=== PATIENT | male | born 1950 | race Caucasian/White ===

== ENCOUNTER 2020-09-10 14:07 | Inpatient (IN) | payer OTHER ==
[~2020-09-10] VITALS: Ht 180.3 cm; Wt 86.7 kg
--- NOTE | 2020-09-10 14:36 | PHYS DOC ---
Past History Past Medical History: Anemia, Diabetes, Hypertension Past Surgical History: No Surgical History Additional Past Surgical Histo: colonoscopy. Alcohol Use: None Drug Use: None General Adult EDM: Chief Complaint: CHEST PAIN HPI: HPI: 70-year-old male presents with chest pain. The patient tells me that he had upper abdominal lower chest pain yesterday but it went away. He has pain again there today. He does not really describe it well. Patient appears to have some level of diminished capacity. He may have had an episode of vomiting this morning. He denies diarrhea. He denies shortness of breath or diaphoresis. Patient has no history of cardiac problems. He has not had a stress test or cardiac cath. Family who accompanies him provides some of this history. He denies fever or chills. He has no other complaints this time. The patient takes medication for blood pressure and a baby aspirin daily. Review of Systems: Review of Systems: Constitutional: Denies fever or chills Eyes: Denies change in visual acuity HENT: Denies nasal congestion or sore throat Respiratory: Denies cough or shortness of breath Cardiovascular: Chest pain GI: Epigastric abdominal pain, nausea, vomiting. Denies bloody stools or diarrhea : Denies dysuria Musculoskeletal: Denies back pain or joint pain Integument: Denies rash Neurologic: Denies headache, focal weakness or sensory changes Endocrine: Denies polyuria or polydipsia Lymphatic: Denies swollen glands Psychiatric: Denies depression or anxiety Allergies: Allergies: Allergies Coded Allergies Type Severity Reaction Last Updated Verified No Known Drug Allergies 06/02/14 No Physical Exam: PE: Constitutional: Well developed, well nourished, no acute distress, non-toxic appearance. [] HENT: Normocephalic, atraumatic, bilateral external ears normal, oropharynx moist, no oral exudates, nose normal. [] Eyes: PERRLA, EOMI, conjunctiva normal, no discharge. [] Neck: Normal range of motion, no tenderness, supple, no stridor. [] Cardiovascular: Heart rate regular rhythm, 4/6 systolic ejection murmur [] Lungs & Thorax: Bilateral breath sounds clear to auscultation [] Abdomen: Bowel sounds normal, soft, epigastric tenderness, no masses, no pulsatile masses. [] Skin: Warm, dry, no erythema, no rash. [] Back: No tenderness, no CVA tenderness. [] Extremities: No tenderness, no cyanosis, no clubbing, ROM intact, no edema. [] Neurologic: Alert and oriented X 3, normal motor function, normal sensory function, no focal deficits noted. [] Psychologic: Affect normal, judgement normal, mood normal. [] Current Patient Data: Vital Signs: Vital Signs Date Time Temp Pulse Resp B/P (MAP) Pulse Ox O2 Delivery O2 Flow Rate FiO2 09/10/20 14:15 100.0 117 28 174/90 (118) 96 Room Air EKG: EKG: [] Radiology/Procedures: Radiology/Procedures: [] Impressions: AP portable chest radiograph 09/10/2020 Clinical History: Chest pain. An AP erect portable digital radiograph of the chest was obtained. The cardiac silhouette is mildly enlarged. The thoracic aorta is mildly tortuous. Atherosclerotic calcification of the thoracic aorta is seen. No acute pulmonary infiltrate is noted. No pneumothorax or pleural effusion is seen. Degenerative changes are seen involving the thoracic spine and both shoulders. IMPRESSION: No acute abnormality is seen. Electronically signed by: Narayan Hartman MD (09/10/2020 3:24 PM) [id number] DICTATED AND SIGNED BY: NARAYNA HARTMAN MD DATE: 09/10/20 1523 CC: MERRY DOHERTY DO; PANCHITO ELLINGTON ~MTH0 0 Study: CT abdomen/pelvis with intravenous contrast Indication: Pancreatitis. Comparison: None. Technique: Helical CT imaging performed of the abdomen and pelvis after the intr avenous administration of 75 cc Omnipaque 300 contrast. Sagittal and coronal reformats were obtained. One or more of the following individualized dose reduction techniques were utilized for this examination: 1. Automated exposure control 2. Adjustment of the mA and/or kV according to patient size 3. Use of iterative reconstruction technique. Findings: Fatty infiltration of the pancreas. Edematous uncinate process and surrounding mesentery. No pancreatic or peripancreatic fluid collection. No soft tissue gas with a small focus of gas along the third segment of the duodenum, image 32 series 2, favored intraluminal.. Trace free pelvic fluid. Patent portal veins and central superior mesenteric vein. Patent splenic vein. No pseudoaneurysm. No focal hepatic parenchymal abnormality. Two calcified gallstones. No manifestations of acute cholecystitis. Nondilated biliary tree. No stone is seen within the common duct. The spleen is within normal limits for size. No adrenal gland mass. Cystic prominence of the left renal pelvis favored in part from peripelvic cysts. Caliectasis is possible but the pelvis is not dilated nor is the ureter. Similar but more mild cystic change at the inferior pole of the right renal pelvis. Nonspecific perinephric fat stranding. No stone is seen within either ureter or within the urinary bladder. Bladder wall thickness is within normal limits. There appear to be two small bladder diverticuli anteriorly, image 74 series 2. The prostate is within normal limits for size. Mild volume colonic stool burden. The appendix is not well delineated and may be surgically absent. Nonobstructed small bowel. Possible mild reactive ileus. Unremarkable stomach. Minimal scattered calcific atherosclerosis. Nonaneurysmal aorta. A few reactive mesenteric lymph nodes. Mildly prominent but not pathologically enlarged inguinal lymph nodes the largest on the left measuring up to 1 cm short axis. No complex body wall hernia. No acute abnormality of the body wall soft tissues. Lower lumbar spondylosis greatest at L4/L5. No acute osseous abnormality or findings of avascular necrosis. Impression: 1. Acute pancreatitis centered at the uncinate process with inflammatory changes extending downward along the mesentery. Reactive wall thickening of the adjacent duodenum and there may be a mild reactive ileus. No fluid collection or soft tissue gas. No vascular complication. 2. Intrapelvic cystic change on the left could be in part from peripelvic cysts. A component of caliectasis is possible but there is no hydroureter or stone to suggest active obstruction. 3. Two calcified gallstones. No findings of acute cholecystitis. No stone is seen within the common duct to indicate gallstone pancreatitis. Electronically signed by: RAISA LEON MD (09/10/2020 4:52 PM) [id number] DICTATED AND SIGNED BY: RAISA LEON MD DATE: 09/10/20 1643 CC: MERRY DOHERTY DO; PANCHITO ELLINGTON ~MTH0 0 Heart Score: C/O Chest Pain: Yes HEART Score for Chest Pain: HEART Score for Chest Pain Response (Comments) Value History Slighlty/Non-Suspicious 0 ECG Nonspecific Repolarizatio 1 Age > 65 2 Risk Factors 1 or 2 Risk Factors 1 Total 4 Risk Factors: Risk Factors: DM, Current or recent (<one month) smoker, HTN, HLP, family history of CAD, obesity. Risk Scores: Score 0 - 3: 2.5% MACE over next 6 weeks - Discharge Home Score 4 - 6: 20.3% MACE over next 6 weeks - Admit for Clinical Observation Score 7 - 10: 72.7% MACE over next 6 weeks - Early Invasive Strategies Course & Med Decision Making: Course & Med Decision Making Pertinent Labs and Imaging studies reviewed. (See chart for details) EKG is unremarkable for acute findings. Troponin is negative. Chest x-ray is negative for acute findings. The patient's labs are significant for an elevated lipase and elevated BNP. I have no previous for comparison. The lipase is most concerning and it makes sense with his symptoms. The patient does not drink alcohol at all. He has no history of pancreatitis. I have ordered a CT scan. The CT confirms pancreatitis. He has gallstones, but there does not appear to be an obstructive one at this time. His liver enzymes are normal. His alk phos is normal. We will give the patient 4 mg of morphine for his discomfort. I spoke with Dr. Panda, the hospitalist and he has accepted the patient for admission. The patient and his family are in agreement with this pl an. [] Elianeon Disclaimer: Griffin Disclaimer: This electronic medical record was generated, in whole or in part, using a voice recognition dictation system. Departure Departure: Impression: Primary Impression: Pancreatitis Qualified Codes: K85.90 - Acute pancreatitis without necrosis or infection, unspecified Disposition: ADMITTED INPATIENT Admitting Physician: Bruno Panda Condition: STABLE Referrals: PANCHITO ELLINGTON (PCP) MERRY DOHERTY DO September 10, 2020 14:36
[2020-09-10] MEDS ORDERED: ASPIRIN CHEWABLE 81 MG TABLET. PO ONE (14:45)
[2020-09-10 14:53] LABS: BASO # 0.1 x10^3/uL (0.0-0.2); BASO % 0 % (0-3); EOS % 0 % (0-3); HEMATOCRIT 35.9 % (39.0-53.0); HEMOGLOBIN 11.5 g/dL (13.0-17.5); LYMPH # 0.6 x10^3/uL (1.0-4.8); LYMPH % 5 % (24-48); MEAN CORPUSCULAR HEMOGLOBIN 27 pg (25-35); MEAN CORPUSCULAR HGB CONC 32 g/dL (31-37); MEAN CORPUSCULAR VOLUME 85 fL (79-100); MONO # 0.9 x10^3/uL (0.0-1.1); MONO % 8 % (0-9); NEUT # 10.5 x10^3uL (1.8-7.7); NEUT % 87 % (31-73); PLATELET COUNT 162 x10^3/uL (140-400); RED BLOOD COUNT 4.23 x10^6/uL (4.30-5.70); RED CELL DISTRIBUTION WIDTH 16.7 % (11.5-14.5); WHITE BLOOD COUNT 12.1 x10^3/uL (4.0-11.0)
[2020-09-10] MEDS ORDERED: IV NORMAL SALINE 1,000ML 1,000 ML IV ONE (15:00)
[2020-09-10 15:06] LABS: CALCIUM 8.9 mg/dL (8.5-10.1); CREATININE 0.9 mg/dL (0.7-1.3); GFR 83.9; POTASSIUM 3.6 mmol/L (3.5-5.1)
[2020-09-10] MEDS ORDERED: FAMOTIDINE 20 MG/2 ML VIAL IVP ONE (15:15)
[2020-09-10] MEDS ORDERED: LIDO:MAALOX 1:1 20 ML SINGLE DOSE. PO ONE (15:15)
[2020-09-10 15:18] LABS: ALBUMIN 3.2 g/dL (3.4-5.0); ALBUMIN/GLOBULIN RATIO 0.7 (1.0-1.7); TOTAL BILIRUBIN 0.7 mg/dL (0.2-1.0); TOTAL PROTEIN 7.5 g/dL (6.4-8.2)
--- NOTE | 2020-09-10 15:26 | RAD ---
AP portable chest radiograph 09/10/2020 Clinical History: Chest pain. An AP erect portable digital radiograph of the chest was obtained. The cardiac silhouette is mildly enlarged. The thoracic aorta is mildly tortuous. Atherosclerotic pretty cification of the thoracic aorta is seen. No acute pulmonary infiltrate is noted. No pneumothorax or pleural effusion is seen. Degenerative changes are seen involving the thoracic spine and both shoulde rs. IMPRESSION: No acute abnormality is seen. Electronically signed by: Narayan Hartman MD (09/10/2020 3:24 PM) [id number]
--- NOTE | 2020-09-10 15:39 | EKG ---
[address] [address] Test Date: 2020-09-10 Test Time: 14:14:34 Pat Name: PRO GALLOWAY Department: Room: Gender: M Jewelry Bench Worker: CAROLEE : 1950 Requested By: MERRY DOHERTY Order Number: [id number] Reading MD: Leif Wise Measurements Intervals Marshall Rate: 117 P: -5 WA: 182 QRS: 7 QRSD: 72 T: 69 QT: 282 QTc: 397 Interpretive Statements SINUS TACHYCARDIA ST & T ABNORMALITY, CONSIDER HIGH LATERAL ISCHEMIA OR LEFT VENTRICULAR STRAIN Electronically Signed On 09-13-2020 15:29:50 CDT by Leif Wise
[2020-09-10] MEDS ORDERED: IOHEXOL 300 MG/ML 75 ML VIAL. IV ONE (16:00)
[2020-09-10] MEDS ORDERED: CONTRAST GIVEN. MC PRN (16:00)
--- NOTE | 2020-09-10 16:54 | RAD ---
Study: CT abdomen/pelvis with intravenous contrast Indication: Pancreatitis. Comparison: None. Technique: Helical CT imaging performed of the abdomen and pelvis after the intravenous administratio n of 75 cc Omnipaque 300 contrast. Sagittal and coronal reformats were obtained. One or more of the following individualized dose reduction techniques were utilized for this examinat ion: 1. Automated exposure control 2. Adjustment of the mA and/or kV according to patient size 3. Use of iterative reconstruction technique. Findings: Fatty infiltration of the pancreas. Edematous uncinate process and surrounding mesentery. No pancreat ic or peripancreatic fluid collection. No soft tissue gas with a small focus of gas along the third s egment of the duodenum, image 32 series 2, favored intraluminal.. Trace free pelvic fluid. Patent por dustin veins and central superior mesenteric vein. Patent splenic vein. No pseudoaneurysm. No focal hepatic parenchymal abnormality. Two calcified gallstones. No manifestations of acute cholec ystitis. Nondilated biliary tree. No stone is seen within the common duct. The spleen is within rubina l limits for size. No adrenal gland mass. Cystic prominence of the left renal pelvis favored in part from peripelvic cysts. Caliectasis is poss ible but the pelvis is not dilated nor is the ureter. Similar but more mild cystic change at the infe rior pole of the right renal pelvis. Nonspecific perinephric fat stranding. No stone is seen within e ither ureter or within the urinary bladder. Bladder wall thickness is within normal limits. There nirali ear to be two small bladder diverticuli anteriorly, image 74 series 2. The prostate is within normal limits for size. Mild volume colonic stool burden. The appendix is not well delineated and may be surgically absent. N onobstructed small bowel. Possible mild reactive ileus. Unremarkable stomach. Minimal scattered calcific atherosclerosis. Nonaneurysmal aorta. A few reactive mesenteric lymph node s. Mildly prominent but not pathologically enlarged inguinal lymph nodes the largest on the left chris uring up to 1 cm short axis. No complex body wall hernia. No acute abnormality of the body wall soft tissues. Lower lumbar spondyl osis greatest at L4/L5. No acute osseous abnormality or findings of avascular necrosis. Impression: 1. Acute pancreatitis centered at the uncinate process with inflammatory changes extending downward along the mesentery. Reactive wall thickening of the adjacent duodenum and there may be a mild reacti ve ileus. No fluid collection or soft tissue gas. No vascular complication. 2. Intrapelvic cystic change on the left could be in part from peripelvic cysts. A component of john ectasis is possible but there is no hydroureter or stone to suggest active obstruction. 3. Two calcified gallstones. No findings of acute cholecystitis. No stone is seen within the common duct to indicate gallstone pancreatitis. Electronically signed by: RAISA LEON MD (09/10/2020 4:52 PM) [id number]
[2020-09-10] MEDS ORDERED: MORPHINE SULFATE 4 MG/ML DISP.SYRIN. IV ONE (17:15)
[2020-09-10] MEDS ORDERED: IV DEXTROSE 5%-LACT RINGERS 1,000 ML IV ONE (17:15)
[2020-09-10] MEDS ORDERED: ONDANSETRON PF 4 MG/2 ML VIAL. IVP PRN (17:15)
--- NOTE | 2020-09-10 20:10 | NUR ---
The patient, PRO GALLOWAY, 70 y/o, M admitted by DANDRE OLVERA MD, was given written information regarding hospital policies, unit procedures and contact persons. Valuables were checked and logged. Call light in place.
[2020-09-10 20:11] VITALS: BP 176/87
[2020-09-10] MEDS ORDERED: METF500T16 PO (20:41)
[2020-09-10] MEDS ORDERED: CHOL500051 PO (20:41)
[2020-09-10] MEDS ORDERED: FOLI0.8C2 PO (20:41)
[2020-09-10] MEDS ORDERED: LISI20TA18 PO (20:41)
[2020-09-10] MEDS ORDERED: ATOR10TA60 PO (20:41)
[2020-09-10] MEDS ORDERED: AMLO-187 PO (20:41)
[2020-09-10] MEDS ORDERED: FERR-26 PO (20:41)
[2020-09-10] MEDS ORDERED: ASPI-630 PO (20:42)
[2020-09-10] MEDS: ATORVASTATIN CALCIUM 10 MG TABLET. PO SCH (21:31)
[2020-09-10 22:24] VITALS: BP 171/81
[2020-09-11] MEDS: MORPHINE SULFATE 4 MG/ML DISP.SYRIN. IVP PRN ×2 (00:20→13:50)
[2020-09-11] MEDS ORDERED: IV NORMAL SALINE 1,000ML 1,000 ML IV SCH (02:00)
[2020-09-11 05:48] VITALS: BP 167/83
[2020-09-11 07:37] LABS: ALBUMIN 2.6 g/dL (3.4-5.0); ALBUMIN/GLOBULIN RATIO 0.6 (1.0-1.7); CALCIUM 8.5 mg/dL (8.5-10.1); CREATININE 0.9 mg/dL (0.7-1.3); GFR 83.9; POTASSIUM 3.6 mmol/L (3.5-5.1); TOTAL BILIRUBIN 0.7 mg/dL (0.2-1.0); TOTAL PROTEIN 7.2 g/dL (6.4-8.2)
[2020-09-11] MEDS: FOLIC ACID 1 MG TABLET PO SCH (09:11)
[2020-09-11] MEDS: CHOLECALCIFEROL (VITAMIN D3) 1,000 UNIT TABLET PO SCH (09:11)
[2020-09-11] MEDS: amLODIPine BESYLATE 10 MG TABLET PO SCH (09:11)
[2020-09-11] MEDS: LISINOPRIL 20 MG TABLET PO SCH (09:12)
[2020-09-11] MEDS: ASPIRIN CHEWABLE 81 MG TABLET. PO SCH (09:12)
[2020-09-11] MEDS: FERROUS SULFATE 325 MG TABLET. PO SCH (09:12)
--- NOTE | 2020-09-11 10:15 | HP ---
ADMIT DATE: 09/10/2020 ATTENDING PHYSICIAN: Dr. Panda. CHIEF COMPLAINT: Abdominal pain and back pain. HISTORY OF PRESENT ILLNESS: The patient is a 70-year-old gentleman who is developmentally delayed. He lives with his brother. His parents have . He has never . He has no children. He had extensive workup in the ED for the pain, he was found to have inflammation of the pancreas, the uncinate process. A few gallstones are in place without any dilatation. I suspect he had a small gallstone causing obstructive pancreatitis, which has since passed. His lipase was only 800. His abdominal exam was fairly unremarkable. He was admitted for further treatment and evaluation. He was kept n.p.o., given pain meds. PAST MEDICAL HISTORY: Significant for essential hypertension, adult onset diabetes and anemia of chronic disease. CURRENT MEDICATIONS: Reviewed. He was taking amlodipine, aspirin, Lipitor, ferrous sulfate, lisinopril and metformin. ALLERGIES: He has no known drug allergies. SOCIAL HISTORY: Nonsmoker, nondrinker. FAMILY HISTORY: Never . Parents have . He lives with his brother. REVIEW OF SYSTEMS: Significant for his developmental delay. He has abdominal pain, chronic back pain. Very hard time understanding what is going on. He was asking for panacea to cure everything. OBJECTIVE FINDINGS: VITAL SIGNS: In the ED, showed a blood pressure of 171/80, pulse is regular at 90 per minute, temperature 99.0 degrees Fahrenheit, oxygen saturation 96% on room air. HEENT: Head is without trauma. Pupils are reactive. Sclerae nonicteric. Oropharynx clear. NECK: Supple, no bruits. LUNGS: Clear. CARDIOVASCULAR: Showed regular heart tones. No gallops. ABDOMEN: Obese, protuberant. No organomegaly. Bowel sounds were hypoactive. EXTREMITIES: Show no signs or edema. NEUROLOGIC: Focally intact. Speech is fluent. LABORATORY DATA: Chemistry panel unremarkable. Lipase is 803. Electrolytes within range. Hemoglobin 11.5, white count 12,100. ASSESSMENT: 1. A 70-year-old gentleman with gallstone, pancreatitis, the stone has passed. 2. Symptoms are mild. 3. Epigastric and back pain. 4. Developmental delay. 5. Essential hypertension. 6. Anemia of chronic disease. 7. Type 2 diabetes. PLAN: 1. Admit to the inpatient unit. 2. N.p.o. 3. Pain and nausea control. 4. Gentle IV hydration. 5. Serial chemistries. DAJA/YANNICK DR: Drake TID: [id number] CC: GRZEGORZ BIGGS
[2020-09-11 11:39] VITALS: BP 189/83
[2020-09-11 11:48] VITALS: BP 149/76
[2020-09-11 15:50] VITALS: BP 138/74
--- NOTE | 2020-09-11 18:29 | NUR ---
Nursing note Pt is tolerating meals well and does not report pain with dinner
[2020-09-11 19:12] VITALS: BP 148/75
[2020-09-11] MEDS: ATORVASTATIN CALCIUM 10 MG TABLET. PO SCH (20:51)
[2020-09-11 22:46] VITALS: BP 129/75
[2020-09-12 05:19] VITALS: BP 146/76
[2020-09-12 07:30] LABS: CALCIUM 8.7 mg/dL (8.5-10.1); CREATININE 0.9 mg/dL (0.7-1.3); GFR 83.9; POTASSIUM 3.5 mmol/L (3.5-5.1)
[2020-09-12] MEDS: ASPIRIN CHEWABLE 81 MG TABLET. PO SCH (08:04)
[2020-09-12] MEDS: CHOLECALCIFEROL (VITAMIN D3) 1,000 UNIT TABLET PO SCH (08:04)
[2020-09-12] MEDS: FERROUS SULFATE 325 MG TABLET. PO SCH (08:04)
[2020-09-12] MEDS: LISINOPRIL 20 MG TABLET PO SCH (08:04)
[2020-09-12 08:05] VITALS: BP 146/76
[2020-09-12] MEDS: amLODIPine BESYLATE 10 MG TABLET PO SCH (08:05)
[2020-09-12] MEDS: FOLIC ACID 1 MG TABLET PO SCH (08:05)
--- NOTE | 2020-09-12 09:03 | NUR ---
pt states that pain in upper abdomen is resolved today but c/o gas pain in lower abdomen. denies any other concerns.
--- NOTE | 2020-09-12 09:32 | DS ---
DATE OF DISCHARGE: 09/12/2020 ATTENDING PHYSICIAN: Dr. Panda. FINAL DISCHARGE DIAGNOSES: 1. Gallstone pancreatitis, resolved. 2. Cholelithiasis. 3. Type 2 diabetes mellitus. 4. Epigastric pain. 5. Essential hypertension. 6. Anemia of chronic disease. 7. Type 2 diabetes. 8. Developmental delay and learning disability. HISTORY AND PHYSICAL: The patient is a 70-year-old gentleman lived with his brother most of his adult life, has developmental delay. He presented with abdominal pain. Workup showed a very mild pancreatitis with slight edematous, uncinate process of the pancreas. He has some gallstones, 1 probably causing obstruction and has since passed. He was admitted for further treatment and evaluation. PHYSICAL EXAMINATION: Please see the dictated note. PERTINENT LABORATORY AND X-RAY STUDIES: Admission hemoglobin was 11.5 g/dL with a white count of 12,100. His chemistry panel is unremarkable. Nonfasting blood sugar 160. Creatinine 0.9 mg/dL. Electrolytes within normal range. Admission lipase was 800. COURSE IN THE HOSPITAL: The patient was admitted. He was initially kept n.p.o. We advanced his diet. Pain and nausea controlled. Gentle IV hydration. He did well. He had no further symptoms. On the third hospital day, he was discharged home. Strong recommendation for a low fat diet. I explained this to his niece who is on the record. His home meds are unchanged. They include the following: He will continue his amlodipine, aspirin, Lipitor, vitamin D, ferrous sulfate, folic acid, lisinopril, and metformin dose is unchanged. The patient was then discharged from our hospital in stable condition with explicit written and followup care. He will follow up with the regular time with Hernan Friedman. DAJA/TANYA DR: Drake TID: [id number] CC: GRZEGORZ BIGGS
--- NOTE | 2020-09-12 10:00 | NUR ---
Pt discharge instructions reviewed with pt and brother. discharge instructions, education materials and belongings all sent with pt.
[2020-09-13] MEDS ORDERED: metFORMIN 500 MG TABLET PO SCH (21:00)
== END 2020-09-12 10:02 | disposition home or self-care (01) | DRG 440 ==
LOC: ER 14:07 → 1 SOUTH 17:05
PROVIDERS: ADMIT Hospitalist; ATTEND Hospitalist
DX: K85.10 Biliary acute pancreatitis without necrosis or infection (principal); D63.8 Anemia in other chronic diseases classified elsewhere; E11.9 Type 2 diabetes mellitus without complications; I10 Essential (primary) hypertension; R62.50 Unspecified lack of expected normal physiological development in childhood; K80.20 Calculus of gallbladder without cholecystitis without obstruction; Z79.82 Long term (current) use of aspirin
CPT/HCPCS: 36415; 71045; 74177; 80048; 80053; 82947; 83690; 83880; 84484; 85025; 93005; 96361; 96374; 96375; J2270; J2405; J3490; 99285-25; J7030

== ENCOUNTER → 2020-10-04 | Outpatient (CLI) | payer OTHER ==
[2020-09-12 08:05] VITALS: BP 146/76
[~2020-10-04] MED LIST: AMLO-187 PO; ASPI-630 PO; ATOR10TA60 PO; CHOL500051 PO; FERR-26 PO; FOLI0.8C2 PO; LISI20TA18 PO; METF500T16 PO
--- NOTE | 2020-10-04 14:43 | CARD ---
MR#: [id number] Date of Study: 10/04/2020 Ordering Physician: PANCHITO ELLINGTON, Referring Physician: PANCHITO ELLINGTON, Tech: Alisa Polk, [facility] APPROVED REPORT EXAM: Two-dimensional and M-mode echocardiogram with Doppler and color Doppler. Other Information Quality : AverageHR: 89bpm INDICATION Murmur RISK FACTORS Hypertension Diabetes Smoking 2D DIMENSIONS Left Atrium(2D)3.2 (1.6-4.0cm)IVSd1.0 (0.7-1.1cm) Aortic Root(2D)2.6 (2.0-3.7cm)LVDd4.1 (3.9-5.9cm) LVOT Diameter2.0 (1.8-2.4cm)PWd0.9 (0.7-1.1cm) LVDs3.2 (2.5-4.0cm)FS (%) 22.1 % SV34.3 mlLVEF(%)45.0 (>50%) Aortic Valve AoV Peak Elvis.203.4cm/sAoV VTI43.1cm AO Peak GR.16.5mmHgLVOT Peak Elvis.152.5cm/s LVOT VTI 34.81cmAO Mean GR.8mmHg KELLI (VMAX)2.27ff9BQP (VTI)2.46cm2 Mitral Valve MV E Jagfbftq95.5cm/sMV DECEL VDDL409ql MV A Ewjgtodn134.4cm/sE/A Ratio0.9 Pulmonary Valve PV Peak Lnhwadpt81.4cm/sPV Peak Grad.3mmHg Tricuspid Valve TR P. Zryiinuj130od/sRAP LRWITRPQ0zqEb TR Peak Gr.33xbUwZUMW86zyWk Pulmonary Vein S1 Wqplywdt64.6cm/sD2 Cqpwditc15.2cm/s LEFT VENTRICLE The left ventricle is normal size. There is normal left ventricular wall thickness. The left ventricu lar systolic function is normal and the ejection fraction is within normal range. The Ejection Fracti on is 55%. There is normal LV segmental wall motion. Transmitral Doppler flow pattern is Grade I-abno rmal relaxation pattern. RIGHT VENTRICLE The right ventricle is borderline dilated. There is normal right ventricular wall thickness. The righ t ventricular systolic function is normal. ATRIA The left atrium size is normal. The right atrium size is normal. The interatrial septum is intact wit h no evidence for an atrial septal defect or patent foramen ovale as noted on 2-D or Doppler imaging. AORTIC VALVE The aortic valve is normal in structure and function. Doppler and Color Flow revealed no significant aortic regurgitation. Calculated aortic valve area is 2.4 cm2 with maximum pressure gradient of 17 mm Hg and mean pressure gradient of 8 mmHg. MITRAL VALVE The mitral valve is normal in structure and function. There is no evidence of mitral valve prolapse. There is no mitral valve stenosis. Doppler and Color-flow revealed trace mitral regurgitation. TRICUSPID VALVE The tricuspid valve is normal in structure and function. Doppler and Color Flow revealed trace tricus pid regurgitation with an estimated PAP of 38 mmHg. There is no tricuspid valve stenosis. PULMONIC VALVE The pulmonic valve is not well visualized. Doppler and Color Flow revealed trace pulmonic valvular re gurgitation. There is no pulmonic valvular stenosis. GREAT VESSELS The aortic root is normal in size. The ascending aorta is normal in size. The IVC was not visualized. PERICARDIAL EFFUSION There is no evidence of significant pericardial effusion. Critical Notification Critical Value: No <Conclusion> The left ventricular systolic function is normal and the ejection fraction is within normal range. Th e Ejection Fraction is 55%. There is normal LV segmental wall motion. Signed by : Sadiq Long, Electronically Approved : 10/04/2020 14:42:43
== END ==
LOC: ECHO 10:07
PROVIDERS: ATTEND Physician Assistant
DX: R01.1 Cardiac murmur, unspecified (principal)
CPT/HCPCS: 93306

== ENCOUNTER 2021-01-19 16:45 | Emergency (ER) | payer OTHER ==
[~2021-01-19] VITALS: Ht 180.3 cm; Wt 89.1 kg
[2021-01-19 17:48] LABS: BASO # 0.1 x10^3/uL (0.0-0.2); BASO % 1 % (0-3); EOS % 0 % (0-3); HEMATOCRIT 35.8 % (39.0-53.0); HEMOGLOBIN 11.4 g/dL (13.0-17.5); LYMPH # 0.9 x10^3/uL (1.0-4.8); LYMPH % 7 % (24-48); MEAN CORPUSCULAR HEMOGLOBIN 28 pg (25-35); MEAN CORPUSCULAR HGB CONC 32 g/dL (31-37); MEAN CORPUSCULAR VOLUME 87 fL (79-100); MONO % 7 % (0-9); NEUT # 11.9 x10^3uL (1.8-7.7); NEUT % 86 % (31-73); PLATELET COUNT 157 x10^3/uL (140-400); RED BLOOD COUNT 4.11 x10^6/uL (4.30-5.70); RED CELL DISTRIBUTION WIDTH 15.4 % (11.5-14.5); WHITE BLOOD COUNT 13.9 x10^3/uL (4.0-11.0)
[2021-01-19 17:56] LABS: CREATININE 0.9 mg/dL (0.7-1.3); GFR 83.9; POTASSIUM 4.1 mmol/L (3.5-5.1)
[2021-01-19 18:01] LABS: ALBUMIN 3.1 g/dL (3.4-5.0); ALBUMIN/GLOBULIN RATIO 0.7 (1.0-1.7); TOTAL BILIRUBIN 0.6 mg/dL (0.2-1.0); TOTAL PROTEIN 7.5 g/dL (6.4-8.2)
[2021-01-19] MEDS: IOHEXOL 300 MG/ML 75 ML VIAL. IV ONE (18:14)
--- NOTE | 2021-01-19 18:52 | PHYS DOC ---
Past History Past Medical History: Anemia, Diabetes, Hypertension (MONTY GARCIA) Past Surgical History: No Surgical History Additional Past Surgical Histo: colonoscopy. (MONTY GARCIA) Alcohol Use: None Drug Use: None (MONTY GARCIA) General Adult EDM: Chief Complaint: GI PROBLEM HPI: HPI: Patient is a 70 year old diabetic male who presents with 2-day history of left- sided abdominal pain and 2 episodes of emesis. Patient's niece is at bedside and aids in providing history. Patient rates his pain 6/10 and intermittent. He has never had pain similar to this before, though he does have a history of pancreatitis and obstructive gallstones without surgical intervention. Patient reports nausea, but has been able to keep fluids down. He denies having eaten very much over the past 2 days. His blood sugar this morning was 98. Patient's needs states that he was holding his left side in pain in route to the department. Patient denies fever, chills, diarrhea, constipation. Patient has no other complaints at this time. (MONTY GARCIA) Review of Systems: Review of Systems: Constitutional: See HPI Respiratory: Denies cough or shortness of breath Cardiovascular: Denies chest pain or edema GI: See HPI : Denies dysuria or hematuria Musculoskeletal: Denies back pain or joint pain Integument: Denies rash or other skin lesions Neurologic: Denies headache, focal weakness or sensory changes Endocrine: Denies polyuria or polydipsia Psychiatric: Denies depression or anxiety (MONTY GARCIA) Current Medications: Current Meds: Current Medications Medications (Trade) Dose Ordered Sig/Aster Start Time Stop Time Status Last Admin Dose Admin Iohexol (Omnipaque 300 Mg/ml) 75 ml 1X ONCE 01/19/21 17:30 01/19/21 18:01 DC 01/19/21 18:14 75 ML (MONTY GARCIA) Allergies: Allergies: Allergies Coded Allergies Type Severity Reaction Last Updated Verified No Known Drug Allergies 09/10/20 No (MONTY GARCIA) Physical Exam: PE: Constitutional: Well developed, well nourished, no acute distress, non-toxic appearance. Cardiovascular: Heart rate regular rhythm, no murmur. Lungs & Thorax: Bilateral breath sounds clear to auscultation. Abdomen: Protuberant abdomen, bowel sounds normal, soft, no tenderness, no masses, no pulsatile masses. Skin: Warm, dry, no erythema, no rash. Back: No tenderness, no CVA tenderness. Extremities: No tenderness, no cyanosis, no clubbing, ROM intact, no edema. Neurologic: Alert and oriented x3, normal motor function, normal sensory function, no focal deficits noted. (MONTY GARCIA) Current Patient Data: Labs: Laboratory Tests Test 01/19/21 17:22 White Blood Count 13.9 x10^3/uL (4.0-11.0) H Red Blood Count 4.11 x10^6/uL (4.30-5.70) L Hemoglobin 11.4 g/dL (13.0-17.5) L Hematocrit 35.8 % (39.0-53.0) L Mean Corpuscular Volume 87 fL (79-100) Mean Corpuscular Hemoglobin 28 pg (25-35) Mean Corpuscular Hemoglobin Concent 32 g/dL (31-37) Red Cell Distribution Width 15.4 % (11.5-14.5) H Platelet Count 157 x10^3/uL (140-400) Neutrophils (%) (Auto) 86 % (31-73) H Lymphocytes (%) (Auto) 7 % (24-48) L Monocytes (%) (Auto) 7 % (0-9) Eosinophils (%) (Auto) 0 % (0-3) Basophils (%) (Auto) 1 % (0-3) Neutrophils # (Auto) 11.9 x10^3uL (1.8-7.7) H Lymphocytes # (Auto) 0.9 x10^3/uL (1.0-4.8) L Monocytes # (Auto) 1.0 x10^3/uL (0.0-1.1) Eosinophils # (Auto) 0.0 x10^3/uL (0.0-0.7) Basophils # (Auto) 0.1 x10^3/uL (0.0-0.2) Sodium Level 140 mmol/L (136-145) Potassium Level 4.1 mmol/L (3.5-5.1) Chloride Level 104 mmol/L (98-107) Carbon Dioxide Level 25 mmol/L (21-32) Anion Gap 11 (6-14) Blood Urea Nitrogen 13 mg/dL (8-26) Creatinine 0.9 mg/dL (0.7-1.3) Estimated GFR (Cockcroft-Gault) 83.9 BUN/Creatinine Ratio 14 (6-20) Glucose Level 165 mg/dL (70-99) H Calcium Level 9.0 mg/dL (8.5-10.1) Total Bilirubin 0.6 mg/dL (0.2-1.0) Aspartate Amino Transferase (AST) 21 U/L (15-37) Alanine Aminotransferase (ALT) 25 U/L (16-63) Alkaline Phosphatase 87 U/L (46-116) Total Protein 7.5 g/dL (6.4-8.2) Albumin 3.1 g/dL (3.4-5.0) L Albumin/Globulin Ratio 0.7 (1.0-1.7) L Lipase 330 U/L (73-393) Vital Signs: Vital Signs Date Time Temp Pulse Resp B/P (MAP) Pulse Ox O2 Delivery O2 Flow Rate FiO2 01/19/21 17:00 98.5 95 16 146/71 (96) 98 Room Air ([facility]) Radiology/Procedures: Radiology/Procedures: PROCEDURE: CT ABD PELV W/ IV CONTRST ONLY CT abdomen and pelvis with contrast: Reason for examination: Left-sided abdominal pain. Comparison is made to previous study dated 09/10/2020. Helical images were obtained through the abdomen and pelvis with intravenous administration of 75 cc Omnipaque 300. Reconstruction was performed in sagittal and coronal planes. Exposure: One or more of the following individualized dose reduction techniques were utilized for this examination: 1. Automated exposure control 2. Adjustment of the mA and/or kV according to patient size 3. Use of iterative reconstruction technique. There is atelectasis at the left lung base. The heart size is normal with no pericardial effusion. No acute abnormality seen at the liver, spleen or adrenal glands. There is cholelithiasis again noted. The pancreas shows fatty infiltration but there are inflammatory changes involving the pancreatic tail with peripancreatic mesenteric stranding consistent with acute pancreatitis. No abnormal fluid collections are seen to suggest pseudocyst. The abdominal aorta and inferior vena cava show no acute abnormalities. The appendix is not identified but there is no evidence of diverticulosis, diverticulitis or colitis. The small intes tinal tract shows no abnormal dilatation or wall thickening or evidence of obstruction. No abnormality seen at the stomach or duodenum. The kidneys show no renal masses, renal calculi, hydronephrosis or obstructive uropathy. There continue to be cystic changes in the peripelvic left kidney. No abnormality seen at the bladder. Prostate gland contains calcifications. Seminal vesicles are symmetric. There does appear to be a small amount of fluid in the pelvis. No free air is evident. No acute bony abnormalities are seen. IMPRESSION: Atelectasis at the left lung base. Cholelithiasis. Fatty pancreas with inflammatory changes in the pancreatic tail and in the peripancreatic mesentery consistent with acute pancreatitis. Cystic changes in the left kidney without significant change. No obstructive uropathy evident. Small amount of free fluid fluid in the pelvis. Calcifications in the prostate gland. Electronically signed by: Becky Anderson MD (01/19/2021 6:54 PM) [facility] (MONTY GARCIA) Heart Score: C/O Chest Pain: No (MONTY GARCIA) Course & Med Decision Making: Course & Med Decision Making Pertinent Labs and Imaging studies reviewed. (See chart for details) [] (MONTY GARCIA) Dragon Disclaimer: Dragon Disclaimer: This electronic medical record was generated, in whole or in part, using a voice recognition dictation system. (MONTY GARCIA) Departure Departure: Impression: Primary Impression: Abdominal pain with vomiting Additional Impressions: Acute inflammation of the pancreas Qualified Codes: K85.80 - Other acute pancreatitis without necrosis or infection Cholelithiasis Qualified Codes: K80.20 - Calculus of gallbladder without cholecystitis without obstruction Disposition: 01 HOME / SELF CARE / HOMELESS Condition: STABLE Referrals: PANCHITO ELLINGTON (PCP) PABLO SALDIVAR MD Patient Instructions: Clear Liquid Diet, [id number] Additional Instructions: Until you are able to see Dr. Saldivar, please adhere to a clear liquid diet (included in instructions). Prescriptions were provided and sent to your preferred pharmacy for nausea, abdominal discomfort and pain. As discussed, CT imaging showed inflammation to the pancreas, however blood work did not show infectious changes or elevated enzymes. Please return to the emergency department if symptoms worsen. EMERGENCY DEPARTMENT GENERAL DISCHARGE INSTRUCTIONS Thank you for coming to [facility] (ED) today and trusting us with you care. We trust that you had a positive experience in our Emergency Department. If you wish to speak to the department management, you may call the director at [phone]. YOUR FOLLOW UP INSTRUCTIONS ARE FOLLOWS: 1. The Emergency Physician has interpreted your imaging studies. The corporate specialist has also reviewed them. 3. A lab test or culture has been done, your results will be reviewed and you will be notified if you need a change in treatment. ADDITIONAL INSTRUCTIONS AND INFORMATION: 1. Your care today has been supervised by a physician who is specially trained in emergency care. Many problems require more than one evaluation for a complete diagnosis and treatment. We recommend that you schedule your follow up appointment as recommended to ensure complete treatment of you illness or injury. If you are unable to obtain follow up care and continue to have a problem, or if your condition worsens, we recommend that you return to the ED. 2. We are not able to safely determine your condition over the phone nor are we able to give sound medical advice over the phone. For these safety reasons, if you call for medical advice we will ask you to come to the ED for further evaluation. 3. If you have any questions regarding these discharge instructions please call the ED at [phone]. SAFETY INFORMATION: In the interest of safety, wellness, and injury prevention; we encourage you to wear your sealbelt, if you smoke; quite smoking, and we encourage family to use a protective helmet for bicycling and other sporting events that present an increased risk for head injury. IF YOUR SYMPTOMS WORSEN OR NEW SYMPTOMS DEVELOP, OR YOU HAVE CONCERNS ABOUT YOUR CONDITION; OR IF YOUR CONDITION WORSENS WHILE YOU ARE WAITING FOR YOUR FOLLOW UP APPOINTMENT; EITHER CONTACT YOUR PRIMARY CARE DOCTOR, THE PHYSICIAN WHOSE NAME AND NUMBER YOU WERE GIVEN, OR RETURN TO THE ED IMMEDIATELY. Scripts Tramadol Hcl (TRAMADOL HCL) 50 Mg Tablet 50 MG PO PRN Q6HRS PRN for PAIN, #12 TAB Take 1 tablet by mouth as needed every 6 hours for pain. Prov: MONTY GARCIA 01/19/21 Famotidine (PEPCID) 20 Mg Tablet 1 TAB PO BID for abd discomfort for 10 Days, #20 TAB 3 Refills Take 1 tablet by mouth twice a day. Prov: MONTY GARCIA 01/19/21 Ondansetron (ONDANSETRON ODT) 4 Mg Tab.rapdis 1 TAB PO PRN Q6-8HRS for nausea, #16 TAB Dissolve 1 tablet by mouth every 6-8 hours as needed for nausea. Prov: MONTY GARCIA 01/19/21 Attending Signature Attending Signature I have participated in the care of this patient and I have reviewed and agree with all pertinent clinical information above including history, exam, and recommendations. (SOFÍA RODRIGUEZ MD) MONTY GARCIA Jan 19, 2021 18:52 SOFÍA RODRIGUEZ MD Jan 23, 2021 18:54
--- NOTE | 2021-01-19 18:56 | RAD ---
CT abdomen and pelvis with contrast: Reason for examination: Left-sided abdominal pain. Comparison is made to previous study dated 09/10/2020. Helical images were obtained through the abdomen and pelvis with intravenous administration of 75 cc Omnipaque 300. Reconstruction was performed in sagittal and coronal planes. Exposure: One or more of the following individualized dose reduction techniques were utilized for thi s examination: 1. Automated exposure control 2. Adjustment of the mA and/or kV according to patient size 3. Use of iterative reconstruction technique. There is atelectasis at the left lung base. The heart size is normal with no pericardial effusion. No acute abnormality seen at the liver, spleen or adrenal glands. There is cholelithiasis again noted . The pancreas shows fatty infiltration but there are inflammatory changes involving the pancreatic t ail with peripancreatic mesenteric stranding consistent with acute pancreatitis. No abnormal fluid co llections are seen to suggest pseudocyst. The abdominal aorta and inferior vena cava show no acute ab normalities. The appendix is not identified but there is no evidence of diverticulosis, diverticuliti s or colitis. The small intestinal tract shows no abnormal dilatation or wall thickening or evidence of obstruction. No abnormality seen at the stomach or duodenum. The kidneys show no renal masses, neeru al calculi, hydronephrosis or obstructive uropathy. There continue to be cystic changes in the peripe lvic left kidney. No abnormality seen at the bladder. Prostate gland contains calcifications. Seminal vesicles are symm etric. There does appear to be a small amount of fluid in the pelvis. No free air is evident. No acut e bony abnormalities are seen. IMPRESSION: Atelectasis at the left lung base. Cholelithiasis. Fatty pancreas with inflammatory changes in the pancreatic tail and in the peripancreatic mesentery c onsistent with acute pancreatitis. Cystic changes in the left kidney without significant change. No obstructive uropathy evident. Small amount of free fluid fluid in the pelvis. Calcifications in the prostate gland. Electronically signed by: Becky Anderson MD (01/19/2021 6:54 PM) [facility]EL
[2021-01-19] MEDS ORDERED: TRAM50TA PO (19:57)
[2021-01-19] MEDS ORDERED: FAMO-63 PO (19:57)
[2021-01-19] MEDS ORDERED: ONDA4TAB12 PO (19:57)
[2021-01-19] MEDS: MORPHINE SULFATE 4 MG/ML DISP.SYRIN. IV ONE (20:20)
[2021-01-19] MEDS: ONDANSETRON PF 4 MG/2 ML VIAL. IVP ONE (20:22)
[2021-01-19 20:43] VITALS: BP 151/75
[2021-01-19 20:49] LABS: BACTERIA,URINE 0 /HPF (0-FEW); BILIRUBIN,URINE NEG (NEG); CLARITY,URINE CLEAR; COLOR,URINE YELLOW; GLUCOSE,URINE NEG (NEG); NITRITE,URINE NEG (NEG); RBC,URINE 0 /HPF (0-2); WBC,URINE 0 /HPF (0-4)
== END 2021-01-19 20:47 | disposition home or self-care (01) ==
LOC: ER 16:45
DX: K80.20 Calculus of gallbladder without cholecystitis without obstruction (principal); K85.90 Acute pancreatitis without necrosis or infection, unspecified; E11.9 Type 2 diabetes mellitus without complications; I10 Essential (primary) hypertension
CPT/HCPCS: 36415; 74177; 80053; 81001; 82150; 83690; 85025; 96374; 96375; 99285; J2270; J2405; Q9967

== ENCOUNTER → 2021-02-07 | Outpatient (CLI) | payer OTHER ==
[2021-01-19 20:43] VITALS: BP 151/75
[~2021-02-07] MED LIST changes: +FAMO-63 PO; +ONDA4TAB12 PO; +TRAM50TA PO
--- NOTE | 2021-02-07 09:38 | RAD ---
EXAM: Abdomen sonogram. HISTORY: Cholelithiasis on CT. Pain. TECHNIQUE: Imaging of the abdomen was performed. COMPARISON: CT dated 01/19/2021. FINDINGS: The liver is upper normal in size. No focal hepatic lesion is seen. There is cholelithiasis , including a 1.6 cm stone. There is no superimposed cholecystitis. The common bile duct is normal in caliber. The right kidney is unremarkable. The pancreas and inferior vena cava are obscured due to b owel gas. IMPRESSION: 1. Cholelithiasis. There is no convincing cholecystitis. 2. Partially obscured midline structures due to bowel gas. Electronically signed by: Sabina Chaparro MD (02/07/2021 9:36 AM) [id number]
== END ==
LOC: US 08:42
PROVIDERS: ATTEND Internal Medicine Gastroenterology
DX: K80.20 Calculus of gallbladder without cholecystitis without obstruction (principal)
CPT/HCPCS: 76705